=== PATIENT | female | born 1950 | race Caucasian/White ===

== ENCOUNTER → 2017-10-03 | Outpatient (CLI) | payer MEDICARE ==
[~2017-10-03] MED LIST: ALPR1TAB7 PO; AMLO5TAB2 PO; BUDE160A3 INH; CYCL10TA3 OR; FLUO20CA19 PO; HYDR2TAB58 PO; LEVO50TA7 PO; METO10TA3 PO; OXYC10TA44 PO; PRE5T PO; PRIM50TA29 PO; PROAIR INHALER IN; RAMI10CA38 PO; SODIUM CHLORIDE 0.9% 250 ML IV SCH; TIOTCAP INH; methylPREDNISolone SOD SUCC 125 MG/2 ML VL IV ONE; methylPREDNISolone SOD SUCC 125 MG/2 ML VL ONE
[2017-10-03 16:10] VITALS: BP 141/70
== END | disposition home or self-care (01) ==
LOC: CHF HDHVI 15:19
PROVIDERS: ATTEND Internal Medicine Cardiovascular Disease
DX: J40 Bronchitis, not specified as acute or chronic (principal); E53.9 Vitamin B deficiency, unspecified; R06.2 Wheezing; Z79.01 Long term (current) use of anticoagulants
CPT/HCPCS: 96361; 96374; G0463; J2930; J7050; 96360; 96375

== ENCOUNTER → 2017-10-07 | Outpatient (CLI) | payer MEDICARE ==
[~2017-10-07] VITALS: Ht 30.5 cm; Wt 88.5 kg
[~2017-10-07] MED LIST changes: -SODIUM CHLORIDE 0.9% 250 ML IV SCH; -methylPREDNISolone SOD SUCC 125 MG/2 ML VL IV ONE
[2017-10-07 09:55] VITALS: BP 112/64
[2017-10-07] MEDS: methylPREDNISolone SOD SUCC 125 MG/2 ML VL IV ONE (10:35)
[2017-10-07 10:45] VITALS: BP 135/67
== END | disposition home or self-care (01) ==
LOC: CHF HDHVI 10:15
PROVIDERS: ATTEND Internal Medicine Cardiovascular Disease
DX: J44.9 Chronic obstructive pulmonary disease, unspecified (principal)
CPT/HCPCS: 96374; G0463; J2930